=== PATIENT | male | born 1975 | race Caucasian/White ===

== ENCOUNTER 2020-10-09 18:50 | Emergency (ER) | payer SELFPAY ==
[~2020-10-09] VITALS: Ht 167.7 cm; Wt 90.9 kg
[2020-10-09 19:14] LABS: BASOPHILS % (AUTO) 0 % (0-10); EOSINOPHILS % (AUTO) 1 % (0-10); HEMATOCRIT 46 % (40-54); HEMOGLOBIN 15.6 g/dL (13.3-17.7); LYMPHOCYTES # (AUTO) 1.2 10^3/uL (1.0-4.0); LYMPHOCYTES % (AUTO) 22 % (12-44); MEAN CORPUSCULAR HEMOGLOBIN 29 pg (25-34); MEAN CORPUSCULAR HGB CONC 34 g/dL (32-36); MEAN CORPUSCULAR VOLUME 86 fL (80-99); MEAN PLATELET VOLUME 8.9 fL (9.0-12.2); MONOCYTES # (AUTO) 0.5 10^3/uL (0.0-1.0); MONOCYTES % (AUTO) 8 % (0-12); NEUTROPHILS # (AUTO) 3.8 10^3/uL (1.8-7.8); NEUTROPHILS % (AUTO) 68 % (42-75); PLATELET COUNT 171 10^3/uL (130-400); WHITE BLOOD COUNT 5.6 10^3/uL (4.3-11.0)
[2020-10-09] MEDS ORDERED: LOSA50TA63 PO (19:14)
--- NOTE | 2020-10-09 19:14 | ED Headache ---
General Chief Complaint: Head/Cervical Problems Stated Complaint: ELEV BP Source: patient Exam Limitations: no limitations History of Present Illness Date Seen by Provider: Oct 09, 2020 Time Seen by Provider: 19:09 Initial Comments ER with a frontal headache that began at 2 AM this morning. He has a history of migraines. He also has a history of high blood pressure but ran out of his losartan and aspirin about a month ago. He reports a history of strokes. States they just moved to the area and he is trying to get [facility]. He began vomiting at about 9 AM. He reports light makes the headache worse. He would also like his daughter to be seen for a rash. His states that she does not want a female in his room because "we have had troubles with that before". Timing/Duration: 1 week Severity/Quality: moderate Location: frontal Prior Headaches/Recent Trauma: occasional headaches Modifying Factors: worse with exposure to light Associated Symptoms: nausea/vomiting Allergies and Home Medications Allergies Coded Allergies: codeine (Verified Allergy, Unknown, 10/09/20) Home Medications Losartan Potassium 50 Mg Tablet, 50 MG PO DAILY Prescribed by: ELISE LOCO on 10/09/201913 Patient Home Medication List Home Medication List Reviewed: Yes Review of Systems Review of Systems Constitutional: see HPI Eyes: No Symptoms Reported Ears, Nose, Mouth, Throat: no symptoms reported Respiratory: no symptoms reported Cardiovascular: no symptoms reported Genitourinary: no symptoms reported Musculoskeletal: no symptoms reported Skin: no symptoms reported Psychiatric/Neurological: Headache Past Rkomvva-Aqjzks-Ctrqzp Hx Patient Social History Recent Foreign Travel: No Contact w/Someone Who Travel: No Physical Exam Vital Signs Vital Signs - First Documented 10/09/20 18:55 Temp 36.9 Pulse 80 Resp 16 B/P (MAP) 161/99 (119) Pulse Ox 98 O2 Delivery Room Air Capillary Refill : Height, Weight, BMI Height: '" Weight: lbs. oz. kg; BMI Method: General Appearance: WD/WN, no apparent distress, other (Alert and oriented no distress. Blood pressure 161/99.) Neck: non-tender, full range of motion Cardiovascular: regular rate, rhythm, no murmur Respiratory: normal breath sounds, no respiratory distress, no accessory muscle use Gastrointestinal: normal bowel sounds, non tender, soft Extremities: normal range of motion, non-tender Psychiatric: alert, oriented x 3 Crainal Nerves: normal hearing, normal speech, PERRL Progress/Results/Core Measures Results/Orders Lab Results Laboratory Tests Test 10/09/20 19:05 Range/Units White Blood Count 5.6 4.3-11.0 10^3/uL Red Blood Count 5.40 4.30-5.52 10^6/uL Hemoglobin 15.6 13.3-17.7 g/dL Hematocrit 46 40-54 % Mean Corpuscular Volume 86 80-99 fL Mean Corpuscular Hemoglobin 29 25-34 pg Mean Corpuscular Hemoglobin Concent 34 32-36 g/dL Red Cell Distribution Width 12.1 10.0-14.5 % Platelet Count 171 130-400 10^3/uL Mean Platelet Volume 8.9 L 9.0-12.2 fL Immature Granulocyte % (Auto) 0 % Neutrophils (%) (Auto) 68 42-75 % Lymphocytes (%) (Auto) 22 12-44 % Monocytes (%) (Auto) 8 0-12 % Eosinophils (%) (Auto) 1 0-10 % Basophils (%) (Auto) 0 0-10 % Neutrophils # (Auto) 3.8 1.8-7.8 10^3/uL Lymphocytes # (Auto) 1.2 1.0-4.0 10^3/uL Monocytes # (Auto) 0.5 0.0-1.0 10^3/uL Eosinophils # (Auto) 0.0 0.0-0.3 10^3/uL Basophils # (Auto) 0.0 0.0-0.1 10^3/uL Immature Granulocyte # (Auto) 0.0 0.0-0.1 10^3/uL Sodium Level 136 135-145 MMOL/L Potassium Level 3.8 3.6-5.0 MMOL/L Chloride Level 99 98-107 MMOL/L Carbon Dioxide Level 22 21-32 MMOL/L Anion Gap 15 H 5-14 MMOL/L Blood Urea Nitrogen 11 7-18 MG/DL Creatinine 1.14 0.60-1.30 MG/DL Estimat Glomerular Filtration Rate > 60 BUN/Creatinine Ratio 10 Glucose Level 128 H 70-105 MG/DL Calcium Level 9.7 8.5-10.1 MG/DL Corrected Calcium 8.5-10.1 MG/DL Total Bilirubin 1.2 H 0.1-1.0 MG/DL Aspartate Amino Transf (AST/SGOT) 26 5-34 U/L Alanine Aminotransferase (ALT/SGPT) 23 0-55 U/L Alkaline Phosphatase 104 40-136 U/L Total Protein 8.5 H 6.4-8.2 GM/DL Albumin 5.0 H 3.2-4.5 GM/DL My Orders Orders - ELISE LOCO APRN Cbc With Automated Diff (10/09/20 19:07) Comprehensive Metabolic Panel (10/09/20 19:07) Ed Iv/Invasive Line Start (10/09/20 19:07) Ct Head Wo (10/09/20 19:07) Ketorolac Injection (Toradol Injection) (10/09/20 19:15) Prochlorperazine Injection (Compazine In (10/09/20 19:15) Diphenhydramine Injection (Benadryl Inje (10/09/20 19:15) Ns Iv 1000 Ml (Sodium Chloride 0.9%) (10/09/20 19:15) Medications Given in ED Current Medications Medications Dose Ordered Sig/Bayron Route Start Time Stop Time Status Last Admin Dose Admin Diphenhydramine HCl 25 mg ONCE ONCE IVP 10/09/20 19:15 10/09/20 19:16 DC 10/09/20 19:25 25 MG Ketorolac Tromethamine 15 mg ONCE ONCE IVP 10/09/20 19:15 10/09/20 19:16 DC 10/09/20 19:26 15 MG Prochlorperazine Edisylate 10 mg ONCE ONCE IV 10/09/20 19:15 10/09/20 19:16 DC 10/09/20 19:25 10 MG Vital Signs/I&O 10/09/20 18:55 Temp 36.9 Pulse 80 Resp 16 B/P (MAP) 161/99 (119) Pulse Ox 98 O2 Delivery Room Air Diagnostic Imaging Diagonstic Imaging: CT Comments NAME: MARYAM DA SILVA MED REC#: [id number] PT STATUS: REG ER : 1975 PHYSICIAN: ELISE LOCO APRN ADMIT DATE: 10/09/20/ER Draft Date of Exam:10/09/20 CT HEAD WO EXAMINATION: CT head without contrast. TECHNIQUE: Multiple contiguous axial images were obtained through the brain without the use of intravenous contrast. All CT scans use one or more of the following dose optimizing techniques: automated exposure control, MA and/or KvP adjustment based on patient size and exam type or iterative reconstruction. HISTORY: Headache. COMPARISON: None available. FINDINGS: The ventricles and sulci are normal. There are a few focal areas of hypoattenuation within the bilateral frontal lobe white matter. No acute intracranial hemorrhage or abnormal extra-axial fluid collection is present. No hyperdense vessel. The calvarium is intact. The mastoid air cells are clear. The visualized paranasal sinuses are clear. The orbits are normal. IMPRESSION: 1. No acute intracranial abnormality. 2. Minimal bilateral frontal white matter hypodensities are nonspecific and could be secondary to chronic microangiopathy or migraine vasculitis. Dictated on workstation # [id number] Dict: 10/09/201937 Trans: 10/09/201941 [facility] [id number] Interpreted by: PINKY STEVENSON DO Electronically signed by: Departure Communication (Admissions) 1952-feeling much better at this time, blood pressure down to 134/73. Discussed the CT results with him, he states that the abnormalities that he is aware of wo rsening in the frontal lobe. Impression Primary Impression: Headache Qualified Codes: R51 - Headache Additional Impression: Hypertension Disposition: 01 HOME, SELF-CARE Condition: Improved Departure-Patient Inst. Decision time for Depature: 19:12 Referrals: NO,LOCAL PHYSICIAN (PCP/Family) Primary Care Physician Patient Instructions: High Blood Pressure (DC) Add. Discharge Instructions: 1. Return to ER for any concerns 2. Follow-up with your doctor this week 3. Medication as directed Emergency department focuses on treating and ruling out life-threatening diseases. Whenever possible, a diagnosis is given. However, most patients are given an impression based on their history, physical exam, and workup during your brief time in the ER. Information about probable diagnosis and other educational material has been provided. Please take the time to read and understand this information. It is very important that you follow up with a physician as discussed during the visit today. Failure to adhere to your follow-up instructions may lead to severe disability, injury, or so please make sure to keep your appointments or obtain one as requested.` All discharge instructions reviewed with patient and/or family. Voiced understanding. Scripts Losartan Potassium (Losartan Potassium) 50 Mg Tablet 50 MG PO DAILY, #30 TAB Prov: ELISE LOCO APRN 10/09/20 ELISE LOCO APRN Oct 09, 2020 19:14
[2020-10-09] MEDS ORDERED: diphenhydrAMINE 50 MG/ML INJ (BENADRYL) IVP ONE (19:15)
[2020-10-09] MEDS ORDERED: KETOROLAC 30 MG/ML VIAL IVP ONE (19:15)
[2020-10-09] MEDS ORDERED: NS IV 1000 ML 1,000 ML IV SCH (19:15)
[2020-10-09] MEDS ORDERED: PROCHLORPERAZINE 10 MG/2ML INJ (COMPAZINE) IV ONE (19:15)
--- NOTE | 2020-10-09 19:43 | Diagnostic Imaging Report ---
EXAMINATION: CT head without contrast. TECHNIQUE: Multiple contiguous axial images were obtained through the brain without the use of intravenous contrast. All CT scans use one or more of the following dose optimizing techniques: automated exposure control, MA and/or KvP adjustment based on patient size and exam type or iterative reconstruction. HISTORY: Headache. COMPARISON: None available. FINDINGS: The ventricles and sulci are normal. There are a few focal areas of hypoattenuation within the bilateral frontal lobe white matter. No acute intracranial hemorrhage or abnormal extra-axial fluid collection is present. No hyperdense vessel. The calvarium is intact. The mastoid air cells are clear. The visualized paranasal sinuses are clear. The orbits are normal. IMPRESSION: 1. No acute intracranial abnormality. 2. Minimal bilateral frontal white matter hypodensities are nonspecific and could be secondary to chronic microangiopathy or migraine vasculitis. Dictated by: Dictated on workstation # [id number]
[2020-10-09 19:46] LABS: ALANINE AMINOTRANSFERASE 23 U/L (0-55); ALKALINE PHOSPHATASE 104 U/L (40-136); BILIRUBIN,TOTAL 1.2 MG/DL (0.1-1.0); BUN/CREATININE RATIO 10; CALCIUM 9.7 MG/DL (8.5-10.1); CARBON DIOXIDE 22 MMOL/L (21-32); CHLORIDE 99 MMOL/L (98-107); CREATININE SERUM 1.14 MG/DL (0.60-1.30); GFR ESTIMATED > 60; GLUCOSE 128 MG/DL (70-105); POTASSIUM 3.8 MMOL/L (3.6-5.0); SODIUM 136 MMOL/L (135-145); TOTAL PROTEIN 8.5 GM/DL (6.4-8.2)
[2020-10-09 19:58] VITALS: BP 151/98
== END 2020-10-09 19:58 | disposition home or self-care (01) ==
LOC: ER 18:53
DX: R51.9 Headache, unspecified (principal); I10 Essential (primary) hypertension; Z88.5 Allergy status to narcotic agent
CPT/HCPCS: 36415; 70450; 80053; 85025